=== PATIENT | female | born 1940 | race Caucasian/White ===

== ENCOUNTER 2016-03-23 14:46 | Emergency (ER) | payer MEDICARE, OTHER ==
[~2016-03-23] VITALS: Ht 157.5 cm; Wt 66.7 kg
[2016-03-23] MEDS ORDERED: TRAM50TA2 (16:04)
[2016-03-23] MEDS ORDERED: ATOR20TA66 (16:04)
[2016-03-23] MEDS ORDERED: CLOP75TA28 (16:04)
[2016-03-23] MEDS ORDERED: CARV25TA (16:04)
[2016-03-23] MEDS ORDERED: ANAS1TAB7 (16:04)
[2016-03-23] MEDS ORDERED: ONDA4TAB10 (16:04)
[2016-03-23] MEDS ORDERED: AMLO10TA2 (16:04)
[2016-03-23] MEDS ORDERED: CEFDINIR 300 MG (OMNICEF) CAP PO ONE (16:30)
[2016-03-23] MEDS ORDERED: CEFD300C3 PO (16:30)
--- NOTE | 2016-03-23 16:30 | ED Integumentary General ---
General Chief Complaint: Skin/Wound Problems Stated Complaint: POST OP L SIDE CHEST LUMPS/POSS FLUID/CHILLS Nursing Triage Note: PT HAS RECENT R MASTECTOMY AND HAS CONCERNS OF WOUND Source: patient Exam Limitations: no limitations History of Present Illness Time seen by provider: 16:26 Initial Comments To ER with concerns of infection to the wound on her left breast. She had a mastectomy at [facility] in [place] 10 days ago for breast cancer. She reports that there was a large blister initially. The blister has collapsed and now there is loose skin. Minimal drainage from the 2 PABLO drains. No fevers. She is scheduled to follow-up with her surgeon on 03/26/16. Timing/Duration: yesterday, getting worse Severity: moderate Associated Symptoms: denies symptoms Allergies and Home Medications Allergies Coded Allergies: No Known Drug Allergies (Unverified , 03/23/16) Home Medications Amlodipine Besylate 10 Mg Tablet #30 (Reported) Anastrozole 1 Mg Tablet #30 (Reported) Atorvastatin Calcium 20 Mg Tablet #30 (Reported) Carvedilol 25 Mg Tablet #60 (Reported) Clopidogrel Bisulfate 75 Mg Tablet #30 (Reported) Ondansetron HCl 4 Mg Tablet #20 (Reported) Tramadol HCl 50 Mg Tablet #40 (Reported) Constitutional: see HPI EENTM: see HPI Respiratory: no symptoms reported Cardiovascular: no symptoms reported Genitourinary: no symptoms reported Musculoskeletal: no symptoms reported Skin: see HPI Psychiatric/Neurological: No Symptoms Reported Past Iibprvn-Qerbua-Osegnr Hx Patient Social History Alcohol Use: Denies Use Recreational Drug Use: No Smoking Status: Never a Smoker Recent Foreign Travel: No Contact w/Someone Who Travel: No Recent Infectious Disease Expo: No Recent Hopitalizations: Yes (R SIDED MASTECTOMY) Physical Abuse Screen: No Sexual Abuse: No Seasonal Allergies Seasonal Allergies: No Surgeries HX Surgeries: Yes Surgeries: Breast Respiratory Hx Respiratory Disorders: Yes Respiratory Disorders: COPD Cardiovascular Hx Cardiac Disorders: Yes Cardiac Disorders: Hypertension Neurological Hx Neurological Disorders: No Genitourinary Hx Genitourinary Disorders: No Gastrointestinal Hx Gastrointestinal Disorders: No Musculoskeletal Hx Musculoskeletal Disorders: Yes Musculoskeletal Disorders: Arthritis Endocrine Hx Endocrine Disorders: No HEENT HX ENT Disorders: No Cancer Hx Cancer: Yes Cancer: Breast Psychosocial Hx Psychiatric Problems: No Integumentary HX Skin/Integumentary Disorder: No Blood Transfusions Hx Blood Disorders: No Adverse Reaction to a Blood Tr: No Physical Exam Vital Signs Vital Sign - Last 12Hours 03/23/16 15:45 Temp 96.2 Pulse 58 Resp 18 B/P 118/52 Pulse Ox 96 Capillary Refill : Less Than 3 Seconds General Appearance: WD/WN no apparent distress HEENT: PERRL/EOMI normal ENT inspection Neck: non-tender full range of motion Respiratory: no respiratory distress no accessory muscle use Neurologic/Psychiatric: alert normal mood/affect oriented x 3 Skin: normal color warm/dry other (there is a but appears to be a large hemorrhagic bulla that has collapsed to the tissues overlying the former left breast. Thin membrane of skin at was the outer surface of the bulla is easily removed with difficulty or pain. There remains a small area of necrotic tissue in the center of this wound. There is minimal erythema surrounding it. Covered with dry nonadherent dressing after superficial debridement) Progress/Results/Core Measures Results/Orders My Orders Orders-CESAR CAMPOS APRN Cbc With Automated Diff (03/23/16 16:06) Tramadol Tablet (Ultram Tablet) (03/23/16 16:15) Tramadol Tablet (Ultram Tablet) (03/23/16 16:01) Wound Culture (03/23/16 16:25) Cefdinir Capsule (Omnicef Capsule) (03/23/16 16:30) Medications Given in ED Current Medications Medications Dose Ordered Sig/Thalia Route Start Time Stop Time Status Last Admin Dose Admin Tramadol HCl 50 mg STK-MED ONCE .ROUTE 03/23/16 16:01 03/23/16 16:08 DC 03/23/16 16:23 100 MG Vital Signs/I&O Vital Sign - Last 12Hours 03/23/16 15:45 Temp 96.2 Pulse 58 Resp 18 B/P 118/52 Pulse Ox 96 Blood Pressure Mean: 74 Departure Impression Impression: Primary Impression: Postoperative wound breakdown Qualified Code: T81.31XA - Disruption of external operation (surgical) wound, not elsewhere classified, initial encounter Disposition: HOME, SELF-CARE Condition: Stable Departure-Patient Inst. Decision time for Depature: 16:29 Referrals: NO,LOCAL PHYSICIAN (PCP/Family) Primary Care Physician Patient Instructions: Wound Care (DC) Add. Discharge Instructions: 1. Follow-up with your surgeon on Thursday as scheduled 2. Antibiotics as directed 3. Return to ER for any fevers All discharge instructions reviewed with patient and/or family. Voiced understanding. Scripts Cefdinir 300 Mg [id number] Mg PO BID #14 CAP Prov:CESAR CAMPOS APRN 03/23/16 CESAR CAMPOS APRN Mar 23, 2016 16:30
[2016-03-23 16:47] LABS: BASOPHILS % (AUTO) 0 % (0-10); EOSINOPHILS # (AUTO) 1.1 10^3/uL (0.0-0.3); EOSINOPHILS % (AUTO) 11 % (0-10); LYMPHOCYTES # (AUTO) 1.6 X 10^3 (1.0-4.0); LYMPHOCYTES % (AUTO) 16 % (12-44); MEAN CORPUSCULAR HEMOGLOBIN 31 PG (25-34); MEAN CORPUSCULAR HGB CONC 33 G/DL (32-36); MEAN CORPUSCULAR VOLUME 95 FL (80-99); MONOCYTES % (AUTO) 10 % (0-12); NEUTROPHILS # (AUTO) 6.2 X 10^3 (1.8-7.8); NEUTROPHILS % (AUTO) 63 % (42-75); PLATELET COUNT 273 10^3/uL (130-400); RED BLOOD COUNT 3.43 10^6/uL (4.35-5.85); RED CELL DISTRIBUTION WIDTH 13.8 % (10.0-14.5); WHITE BLOOD COUNT 9.9 10^3/uL (4.3-11.0)
[2016-03-23 17:20] VITALS: BP 118/52
== END 2016-03-23 17:20 | disposition home or self-care (01) ==
LOC: EDUNIT# 14:46 → ER 14:50
DX: T81.31XA Disruption of external operation (surgical) wound, not elsewhere classified, initial encounter (principal); C50.911 Malignant neoplasm of unspecified site of right female breast; J44.9 Chronic obstructive pulmonary disease, unspecified; I10 Essential (primary) hypertension; Z79.02 Long term (current) use of antithrombotics/antiplatelets; Z79.899 Other long term (current) drug therapy; Z90.11 Acquired absence of right breast and nipple
CPT/HCPCS: 36415; 85025; 87070; 87077; 87186; 87205; 99283

== ENCOUNTER 2016-03-24 23:45 | Emergency (ER) | payer MEDICARE ==
[~2016-03-24] VITALS: Ht 157.5 cm; Wt 64.9 kg
[~2016-03-24 23:45] MED LIST: AMLO10TA2; ANAS1TAB7; ATOR20TA66; CARV25TA; CEFD300C3 PO; CLOP75TA28; ONDA4TAB10; TRAM50TA2
--- OUTSIDE RECORDS SUMMARY | 2016-03-24 23:52 | XMS REPORT | Continuity of Care Document ---
Author Author [facility] Organization [facility] Address Unknown Phone Unavailable Care Team Providers Care Cemetery Workers Supervisor Name Role Phone NO, LOCAL PHYSICIAN PCP Unavailable Insurance Providers Payer Name Policy Number Subscriber Name Relationship Unknown Glen Gatica 18 Self / Same As Patient Advance Directives Directive Response Recorded Date/Time Advance Directives No 03/23/16 3:45pm Organ Donor Yes 03/23/16 3:45pm Resuscitation Status Full Code 03/23/16 3:45pm Chief Complaint and Reason for Visit Chief Complaint Skin/Wound Problems Reason for Visit [id number] Problems Active Problems Medical Problem Onset Date Status Postoperative wound breakdown Unknown Acute Medications Current Home Medications Medication Dose Units Route Directions Days/Qty Instructions Start Date Ondansetron Hcl 4 Mg 20 03/23/16 Tramadol Hcl 50 Mg 40 03/23/16 Amlodipine Besylate 10 Mg 30 03/23/16 Carvedilol 25 Mg 60 03/23/16 Anastrozole 1 Mg 30 03/23/16 Atorvastatin Calcium 20 Mg 30 03/23/16 Clopidogrel Bisulfate 75 Mg 30 03/23/16 Cefdinir (Omnicef) 300 Mg 300 Mg Oral Twice A Day 14 03/23/16 Social History Social History Problem Response Recorded Date/Time Alcohol Use Denies Use 03/23/2016 3:45pm Recreational Drug Use No 03/23/2016 3:45pm Recent Foreign Travel No 03/23/2016 3:45pm Recent Infectious Disease Exposure No 03/23/2016 3:45pm Hospitalization with Isolation Denies 03/23/2016 3:45pm Smoking Status Never a Smoker 03/23/2016 3:45pm Recent Hopitalizations Y R SIDED MASTECTOMY 03/23/2016 3:45pm Hospitalization with Isolation Denies 03/23/2016 3:45pm Query Response Start Date Stop Date Smoking Status Never a Smoker Hospital Discharge Instructions No hospital discharge instructions. Plan of Care Discharge Date 03/23/16 5:20pm Disposition 01 HOME, SELF-CARE Condition at Discharge Stable Instructions/Education Provided Wound Care (DC) Prescriptions See Medication Section Referrals NO,LOCAL PHYSICIAN - Primary Care Physician Additional Instructions/Education 1. Follow-up with your surgeon on Thursday as scheduled 2. Antibiotics as directed 3. Return to ER for any fevers All discharge instructions reviewed with patient and/or family. Voiced understanding. Functional Status No functional status results. Allergies, Adverse Reactions, Alerts No known allergies. Immunizations No immunization records. Vital Signs Acute Vital Signs Vital Response Date/Time Temperature (Fahrenheit) 96.2 degrees F (97.6 - 99.5) 03/23/2016 3:45pm Temperature (Calculated Celsius) 35.74268 degrees C (36.4 - 37.5) 03/23/2016 3:45pm Pulse Rate (adult) 58 bpm (60 - 90) 03/23/2016 3:45pm Respiratory Rate 18 bpm (12 - 24) 03/23/2016 3:45pm O2 Sat by Pulse Oximetry 96 % (88 - 100) 03/23/2016 3:45pm Blood Pressure 118/52 mm Hg 03/23/2016 3:45pm Blood Pressure Mean 74 mm Hg 03/23/2016 3:45pm Pain Numeric Pain Scale 9 03/23/2016 4:23pm Height (Feet) 5 feet 03/23/2016 3:45pm Height (Inches) 2 inches 03/23/2016 3:45pm Height (Calculated Centimeters) 157.141553 cm 03/23/2016 3:45pm Weight (Pounds) 147 pounds 03/23/2016 3:45pm Weight (Calculated Kilograms) 66.256857 kilograms 03/23/2016 3:45pm Capillary Refill Capillary Refill Less Than 3 Seconds 03/23/2016 3:45pm Height 5 ft 2 in Weight 147 lb Body Mass Index 26.9 kg/m^2 Results Laboratory Results Test Name Result Units Flags Reference Collection Date/Time Result Date/ Time Comments White Blood Count 9.9 10^3/uL 4.3-11.0 03/23/2016 4:03/23/2016 4: 47pm Red Blood Count 3.43 10^6/uL L 4.35-5.85 03/23/2016 4:03/23/2016 4: 47pm Hemoglobin 10.6 G/DL L 11.5-16.0 03/23/2016 4:03/23/2016 4:47pm Hematocrit 33 % L 35-52 03/23/2016 4:03/23/2016 4:47pm Mean Corpuscular Volume 95 FL 80-99 03/23/2016 4:03/23/2016 4: 47pm Mean Corpuscular Hemoglobin 31 PG 25-34 03/23/2016 4:03/23/2016 4: 47pm Mean Corpuscular Hemoglobin Concent 33 G/DL 32-36 03/23/2016 4: 4:47pm Red Cell Distribution Width 13.8 % 10.0-14.5 03/23/2016 4:2016 4:47pm Platelet Count 273 10^3/uL 130-400 03/23/2016 4:03/23/2016 4:47pm Mean Platelet Volume 10.0 FL 7.4-10.4 03/23/2016 4:03/23/2016 4: 47pm Neutrophils (%) (Auto) 63 % 42-75 03/23/2016 4:03/23/2016 4:47pm Lymphocytes (%) (Auto) 16 % 12-44 03/23/2016 4:03/23/2016 4:47pm Monocytes (%) (Auto) 10 % 0-12 03/23/2016 4:03/23/2016 4:47pm Eosinophils (%) (Auto) 11 % H 0-10 03/23/2016 4:31p03/23/2016 4:47pm Basophils (%) (Auto) 0 % 0-10 03/23/2016 4:31p03/23/2016 4:47pm Neutrophils # (Auto) 6.2 X 10^3 1.8-7.8 03/23/2016 4:31pm 03/23/2016 4: 47pm Lymphocytes # (Auto) 1.6 X 10^3 1.0-4.0 03/23/2016 4:31pm 03/23/2016 4: 47pm Monocytes # (Auto) 1.0 X 10^3 0.0-1.0 03/23/2016 4:31pm 03/23/2016 4: 47pm Eosinophils # (Auto) 1.1 10^3/uL H 0.0-0.3 03/23/2016 4:31pm 03/23/2016 4 :47pm Basophils # (Auto) 0.0 10^3/uL 0.0-0.1 03/23/2016 4:31pm 03/23/2016 4: 47pm Procedures No known history of procedures. Encounters Encounter Location Arrival/Admit Date Discharge/Depart Date Attending Provider Departed Emergency Room [facility] 03/23/16 2:50pm 03/23 5:20pm CESAR CAMPOS APRN Recent Diagnosis
[2016-03-25] MEDS ORDERED: ASPIRIN 81 MG CHEW (CHILDREN'S ASA) PO ONE
[2016-03-25] MEDS ORDERED: RX-NITROGLYCERIN 0.4 MG TAB BTL 25'S SL PRN
[2016-03-25 00:08] LABS: BASOPHILS # (AUTO) 0.1 10^3/uL (0.0-0.1); BASOPHILS % (AUTO) 0 % (0-10); EOSINOPHILS # (AUTO) 1.2 10^3/uL (0.0-0.3); EOSINOPHILS % (AUTO) 9 % (0-10); LYMPHOCYTES # (AUTO) 1.5 X 10^3 (1.0-4.0); LYMPHOCYTES % (AUTO) 10 % (12-44); MEAN CORPUSCULAR HEMOGLOBIN 31 PG (25-34); MEAN CORPUSCULAR HGB CONC 33 G/DL (32-36); MEAN CORPUSCULAR VOLUME 95 FL (80-99); MEAN PLATELET VOLUME 10.2 FL (7.4-10.4); MONOCYTES # (AUTO) 1.4 X 10^3 (0.0-1.0); MONOCYTES % (AUTO) 10 % (0-12); NEUTROPHILS # (AUTO) 9.8 X 10^3 (1.8-7.8); NEUTROPHILS % (AUTO) 71 % (42-75); PLATELET COUNT 283 10^3/uL (130-400); RED BLOOD COUNT 3.45 10^6/uL (4.35-5.85); RED CELL DISTRIBUTION WIDTH 13.6 % (10.0-14.5); WHITE BLOOD COUNT 13.9 10^3/uL (4.3-11.0)
[2016-03-25] MEDS ORDERED: CEFD300C3 PO (00:09)
[2016-03-25 00:13] LABS: INR 1.2 (0.8-1.4); PROTHROMBIN TIME PATIENT 14.4 SEC (12.2-14.7)
[2016-03-25 00:15] VITALS: BP 104/45
--- NOTE | 2016-03-25 00:16 | ED General ---
General Chief Complaint: Altered Mental Status Stated Complaint: CHEST PAIN Nursing Triage Note: INTERMITTANT CHEST PAIN, ALTERED MENTAL STATUS Nursing Sepsis Screen: No Definite Risk Source of Information: Patient (IS A VERY POOR/LIMITED HISTORIAN), Family ( DAUGHTER GIVES ALL INFORMATION) History of Present Illness Time Seen by Provider: 23:55 Initial Comments PT ARRIVES VIA POV FROM HOME PT HAD A LEFT MASTECTOMY [address] AVILES AT [facility]. PT CURRENTLY HAS [address] WHICH CONTINUE TO DRAIN SEROSUNGUINOUS FLUID PT WAS SEEN IN ER LAST PM FOR A "BLISTER" TO WOUND--WAS FOUND TO HAVE A LARGE HEMORRHAGIC BULLA TO INCISION. PT WAS PLACED ON BACTRIM PT IS TO HAVE ADDITIONAL SURGERY ON Thursday03/26/16 TO REMOVE ADDITIONAL MUSCLE, PATHOLOGY REPORTS SHOWED CANCER IN THE MUSCLE WELL, PER DAUGHTER PT HAS NOT HAD ANY CHEMO OR RADIATION PT DENIES FEVER DAUGHTER REPORTS THAT PT WAS ACTING NORMAL THIS AM ON WAKING, BUT HAS GRADUALLY BECAME SOMEWHAT CONFUSED, "SPACEY", "NOT ACTING RIGHT-ACTING SILLY" THROUGHOUT THE DAY AND THIS EVENING--NOT NORMAL FOR PT DAUGHTER STATES THE PT SLEPT FOR MOST OF THE DAY, WHICH IS NOT NORMAL FOR PT MUCH LATER, DAUGHTER REPORTS THAT PT HAS HAD THESE "SPELLS" MULTIPLE TIMES TONIGHT PT C/O LEFT CHEST PAIN AND DAUGHTER BROUGHT HER IN --NO IDEA WHEN PAIN STARTED, BUT STATES SHE DOES NOT HAVE ANY PAIN NOW PT HAS CHRONIC SHORTNESS OF BREATH FROM COPD, AND WEARS O2 CONTINUOUSLY, AND SHORTNESS OF BREATH IS NO DIFFERENT THAN NORMAL NO SWELLING IN LEGS/ FEET OR PAIN IN CALVES NO COUGH PT DOES HAVE A CARDIAC HISTORY AND HAS HAD MULTIPLE CO'S SHE HAS HAD 17 STENTS, PLUS UNKNOWN # OF ANGIOPLASTIES. LAST CO WAS 3 MONTHS AGO AND HAD 2 STENTS AND 3 ANGIOPLASTIES AT THAT TIME PT HAS BEEN OFF HER PLAVIX FOR MOST OF THE LAST 2 WEEKS, DUE TO RECENT SURGERY. PT HAS CONTINUED TO TAKE ASPIRIN PT HAD A DOSE OF PAIN MEDICATION THIS AM AND AGAIN AT 2029--PT STATES SHE IS NOT HAVING ANY PAIN AT THIS TIME PT ALSO TOOK ANTIBIOTIC X 2 TODAY PCP: DR. EAGLE GARVIN, [facility] PERE[facility] CARDIOLOGY: DR. INIGUEZ AND DR. TEJADA LANG SURGEON: DR. AVILES, [facility] Allergies and Home Medications Allergies Coded Allergies: No Known Drug Allergies (Unverified , 03/23/16) Home Medications Amlodipine Besylate 10 Mg Tablet #30 (Reported) Anastrozole 1 Mg Tablet #30 (Reported) Atorvastatin Calcium 20 Mg Tablet #30 (Reported) Carvedilol 25 Mg Tablet #60 (Reported) Cefdinir 300 Mg Capsule #14 300 MG PO BID Prescribed by: CESAR CAMPOS on 03/23/16 1630 Cefdinir 300 Mg Capsule 300 MG PO BID (Reported) Clopidogrel Bisulfate 75 Mg Tablet #30 (Reported) Ondansetron HCl 4 Mg Tablet #20 (Reported) Tramadol HCl 50 Mg Tablet #40 (Reported) Constitutional: No chills, No diaphoresis, No dizziness, No fever EENTM: no symptoms reported Respiratory: see HPI short of breath (CHRONIC/STABLE) Cardiovascular: see HPI chest pain (OVER AREA OF SURGERY) Gastrointestinal: no symptoms reportedNo nausea, No vomiting Genitourinary: no symptoms reported Musculoskeletal: see HPI Skin: see HPI Psychiatric/Neurological: See HPIDenies Headache, Denies Numbness, Denies Paresthesia, Denies Seizure, Denies Tingling, Denies Tremors Hematologic/Lymphatic: Other (LYMPH NODES REMOVED FROM LEFT AXILLA) Past Ihlogvl-Olwmpv-Ymkvbv Hx Patient Social History Alcohol Use: Occasionally Uses Recreational Drug Use: No Smoking Status: Former Smoker (QUIT IN 1999) Recent Foreign Travel: No Contact w/Someone Who Travel: No Recent Infectious Disease Expo: No Recent Hopitalizations: Yes (L SIDED MASTECTOMY 03/13/16) Physical Abuse Screen: No Sexual Abuse: No Immunizations Up To Date Tetanus Booster (TDap): Less than 5yrs Seasonal Allergies Seasonal Allergies: No Surgeries HX Surgeries: Yes (CARDIAC CATHS--STENTS X 17, PLUS MULTIPLE ANGIOPLASTIES; LEFT MASTECTOMY 03/13/2016-[facility]) Surgeries: Breast, Cardiac, Coronary Stent Respiratory Hx Respiratory Disorders: Yes Respiratory Disorders: COPD Cardiovascular Hx Cardiac Disorders: Yes (MULTIPLE CO'S , STENTS X 17, MULTIPLE ANGIOPLASTIES) Cardiac Disorders: Coronary Artery Disease, Heart Attack, High Cholesterol, Hypertension Neurological Hx Neurological Disorders: No Reproductive System : No Hx Reproductive Disorders: No Genitourinary Hx Genitourinary Disorders: No Gastrointestinal Hx Gastrointestinal Disorders: No Musculoskeletal Hx Musculoskeletal Disorders: Yes Musculoskeletal Disorders: Arthritis Endocrine Hx Endocrine Disorders: No HEENT HX ENT Disorders: No Cancer Hx Cancer: Yes Cancer: Breast Psychosocial Hx Psychiatric Problems: No Integumentary HX Skin/Integumentary Disorder: No Blood Transfusions Hx Blood Disorders: No Adverse Reaction to a Blood Tr: No Physical Exam Vital Signs Vital Sign - Last 12Hours 03/24/16 03/25/16 23:53 00:15 Temp 99.7 Pulse 65 Resp 19 B/P 104/52 Pulse Ox 90 O2 Delivery Room Air O2 Flow Rate 2 Capillary Refill : Less Than 3 Seconds General Appearance: No Apparent Distress WD/WN HEENT: PERRL/EOMI Neck: Full Range of Motion Normal Inspection Non Tender Supple Respiratory: Normal Breath Sounds No Accessory Muscle Use No Respiratory Distress Other (LEFT CHEST WALL--ENTIRE WOUND AND SURROUNDING TISSUE NECROTIC WITH SURROUNDING ERYTHEMA AND INDURATION, VERY TENDER TO PALPATION. NO DRAINAGE FROM THIS AREA, BUT 2 DRAINS EACH HAVE LESS THAN 25 ML OF SEROSANGUINOUS FLUID ) Cardiovascular: Regular Rate, Rhythm No Edema No JVD No Murmur Normal Peripheral Pulses Gastrointestinal: Normal Bowel Sounds No Organomegaly No Pulsatile Mass Non Tender Soft Back: No CVA Tenderness Extremity: Normal Capillary Refill Non Tender No Calf Tenderness No Pedal Edema Neurologic/Psychiatric: Alert No Motor/Sensory Deficits ldr rn II-XII Norm as Tested Other (ORIENTED TO PERSON, PLACE, SOMEWHAT CONFUSED TO TIME, SITUATION. ) Skin: Normal Color Warm/Dry Other ( ABOVE) Progress/Results/Core Measures Results/Orders Lab Results Laboratory Tests Test 03/24/16 23:57 03/25/16 01:51 03/25/16 02:05 Range/Units Activated Partial Thromboplast Time 33 24-35 SEC Alanine Aminotransferase (ALT/SGPT) 17 0-55 U/L Albumin 3.3 3.2-4.5 G/DL Alkaline Phosphatase 116 40-136 U/L Amylase Level 136 H 25-125 U/L Anion Gap 11 5-14 MMOL/L Aspartate Amino Transf (AST/SGOT) 12 5-34 U/L B-Type Natriuretic Peptide 292.5 H <100.0 PG/ML BUN/Creatinine Ratio 16 Basophils # (Auto) 0.1 0.0-0.1 10^3/uL Basophils (%) (Auto) 0 0-10 % Blood Urea Nitrogen 13 7-18 MG/DL Calcium Level 9.4 8.5-10.1 MG/DL Carbon Dioxide Level 22 21-32 MMOL/L Chloride Level 104 98-107 MMOL/L Creatine Kinase MB 0.7 <6.6 NG/ML Creatinine 0.80 0.60-1.30 MG/DL Eosinophils # (Auto) 1.2 H 0.0-0.3 10^3/uL Eosinophils (%) (Auto) 9 0-10 % Estimat Glomerular Filtration Rate > 60 Glucose Level 88 70-105 MG/DL Hematocrit 33 L 35-52 % Hemoglobin 10.7 L 11.5-16.0 G/DL INR Comment 1.2 0.8-1.4 Lipase 65 8-78 U/L Lymphocytes # (Auto) 1.5 1.0-4.0 X 10^3 Lymphocytes (%) (Auto) 10 L 12-44 % Magnesium Level 1.9 1.8-2.4 MG/DL Mean Corpuscular Hemoglobin 31 25-34 PG Mean Corpuscular Hemoglobin Concent 33 32-36 G/DL Mean Corpuscular Volume 95 80-99 FL Mean Platelet Volume 10.2 7.4-10.4 FL Monocytes # (Auto) 1.4 H 0.0-1.0 X 10^3 Monocytes (%) (Auto) 10 0-12 % Neutrophils # (Auto) 9.8 H 1.8-7.8 X 10^3 Neutrophils (%) (Auto) 71 42-75 % Platelet Count 283 130-400 10^3/uL Potassium Level 4.4 3.6-5.0 MMOL/L Prothrombin Time 14.4 12.2-14.7 SEC Red Blood Count 3.45 L 4.35-5.85 10^6/uL Red Cell Distribution Width 13.6 10.0-14.5 % Sodium Level 137 135-145 MMOL/L Total Bilirubin 0.5 0.1-1.0 MG/DL Total Creatine Kinase 65 29-168 U/L Total Protein 6.2 L 6.4-8.2 G/DL Troponin I < 0.30 <0.30 NG/ML White Blood Count 13.9 H 4.3-11.0 10^3/uL Urine Bacteria NEGATIVE /HPF Urine Bilirubin NEGATIVE NEGATIVE Urine Casts NONE /LPF Urine Clarity CLEAR Urine Color YELLOW Urine Crystals NONE /LPF Urine Culture Indicated NO Urine Glucose (UA) NEGATIVE NEGATIVE Urine Ketones NEGATIVE NEGATIVE Urine Leukocyte Esterase NEGATIVE NEGATIVE Urine Mucus NEGATIVE /LPF Urine Nitrite NEGATIVE NEGATIVE Urine Protein 2+ H NEGATIVE Urine RBC NONE /HPF Urine RBC (Auto) NEGATIVE NEGATIVE Urine Specific [place] 1.005 L 1.016-1.022 Urine Squamous Epithelial Cells 0-2 /HPF Urine Urobilinogen NORMAL NORMAL MG/DL Urine WBC NONE /HPF Urine pH 7 5-9 My Orders Orders-TERRYADRYAN Brooke MADSEN Amylase (03/24/16 23:57) Cbc With Automated Diff (03/24/16 23:57) Comprehensive Metabolic Panel (03/24/16 23:57) Creatine Kinase (03/24/16 23:57) Creatine Kinase Mb (03/24/16 23:57) Lipase (03/24/16 23:57) Partial Thromboplastin Time (03/24/16 23:57) Protime With Inr (03/24/16 23:57) Troponin I (03/24/16 23:57) Ekg Tracing (03/24/16 23:57) Aspirin Chewable Tablet (Baby Aspirin Ch (03/25/16 00:00) Rx-Nitroglycerin Sl Tabs (Rx-Nitrostat S (03/25/16 00:00) BNP (03/24/16 23:57) Monitor-Rhythm Ecg Trace Only (03/24/16 23:57) Magnesium (03/24/16 23:57) Chest 1 View, Ap/Pa Only (03/25/16 00:05) Saline Lock/Iv-Start (03/25/16 00:05) Ct Head Wo (03/25/16 00:16) Ct Angio Chest W (03/25/16 00:30) Methylprednisolone Sod Succ (Solu-Medrol (03/25/16 01:00) Diphenhydramine Injection (Benadryl Inje (03/25/16 01:00) Ua Culture If Indicated (03/25/16 01:34) Lactic Acid Analyzer (03/25/16 01:34) Blood Culture (03/25/16 01:34) Piperacillin Sodium/Tazobactam (Zosyn Vi (03/25/16 02:00) Vancomycin Iv Add-[place] (Vancomycin Iv (03/25/16 02:00) Medications Given in ED Current Medications Medications Dose Ordered Sig/Thalia Route Start Time Stop Time Status Last Admin Dose Admin Aspirin 324 mg ONCE ONCE PO 03/25/16 00:00 03/25/16 00:01 DC 03/25/16 00:03 324 MG Diphenhydramine HCl 50 mg 50 mg ONCE ONCE IVP 03/25/16 01:00 03/25/16 01:02 DC 03/25/16 00:49 50 MG Methylprednisolone Sodium Succinate 125 mg ONCE ONCE IVP 03/25/16 01:00 03/25/16 01:02 DC 03/25/16 00:49 125 MG Piperacillin Sod/ Tazobactam Sod 4.5 gm/Sodium Chloride 100 ml @ 200 mls/hr ONCE ONCE IV 03/25/16 02:00 03/25/16 02:29 DC 03/25/16 02:04 200 MLS/HR Vancomycin HCl/ Sodium Chloride 250 ml @ 250 mls/hr ONCE ONCE IV 03/25/16 02:00 03/25/16 02:59 03/25/16 02:04 250 MLS/HR Vital Signs/I&O Vital Sign - Last 12Hours 03/24/16 03/24/16 03/25/16 03/25/16 23:53 23:53 00:15 01:15 Temp 99.7 Pulse 65 57 60 Resp 19 13 14 B/P 104/52 104/45 115/40 Pulse Ox 90 98 94 O2 Delivery Room Air Room Air Nasal Cannula Room Air O2 Flow Rate 2 03/25/16 03/25/16 02:25 02:28 Temp 99.1 99.1 Pulse 70 70 Resp 16 16 B/P 118/54 Pulse Ox 95 95 O2 Delivery Nasal Cannula Room Air O2 Flow Rate 2 2 Blood Pressure Mean: 69 Progress Note : Progress Note PT REPORTS TO CT STAFF THAT SHE IS ALLERGIC TO IV CONTRAST AND THEY PRE- MEDICATE HER BEFORE IV DYE IS GIVEN. DAUGHTER REPORTS THAT SHE DOES NOT THINK SHE IS ALLERGIC, BUT WILL PREMEDICATE PT A PRECAUTION. PT HAD NO COMPLAINTS DURING ER STAY AND RESTED QUIETLY FOR NEARLY ALL OF STAY Diagnostic Imaging Comments CXR--NO ACUTE PROCESS, PENDING RADIOLOGIST REVIEW CT HEAD--NO ACUTE PROCESS, PER STAT RAD VIA FAX @ 0104 CT CHEST ANGIOGRAM--NO ACUTE PROCESS, PER STAT RAD VIA FAX @ 0123 Reviewed: Reviewed by Me Departure Communication Progress Notes 0130--CALLED [facility]. 0144--SPOKE WITH DR. AVILES, ACCEPTS PT FOR ADMIT. PT WILL HAVE TO GO TO ER FIRST. HE ADVISES VANCOMYCIN AND ZOSYN 0153--SPOKE WITH DR. ORLANDO, ER PHYSICIAN. ACCEPTS PT FOR TRANSFER. Impression Impression: Primary Impression: Altered mental status Additional Impressions: Left sided chest pain POST OP WOUND NECROSIS AND WOUND DEHISCENCE POST OP WOUND INFECTION S/P LEFT MASTECTOMY FOR BREAST CANCER Hx of coronary artery disease Disposition: XFER SHT-TRM HOSP Condition: Stable Departure-Patient Inst. Referrals: NO,LOCAL PHYSICIAN (PCP/Family) Primary Care Physician ADRYAN STEWART DO Mar 25, 2016 00:16
[2016-03-25 00:26] LABS: ALANINE AMINOTRANSFERASE 17 U/L (0-55); ALBUMIN 3.3 G/DL (3.2-4.5); AMYLASE 136 U/L (25-125); ANION GAP 11 MMOL/L (5-14); ASPARTATE AMINO TRANSFERASE 12 U/L (5-34); BILIRUBIN,TOTAL 0.5 MG/DL (0.1-1.0); BLOOD UREA NITROGEN 13 MG/DL (7-18); BUN/CREATININE RATIO 16; CALCIUM 9.4 MG/DL (8.5-10.1); CARBON DIOXIDE 22 MMOL/L (21-32); CHLORIDE 104 MMOL/L (98-107); CREATINE KINASE 65 U/L (29-168); GFR ESTIMATED > 60; GLUCOSE 88 MG/DL (70-105); LIPASE 65 U/L (8-78); MAGNESIUM 1.9 MG/DL (1.8-2.4); POTASSIUM 4.4 MMOL/L (3.6-5.0); SODIUM 137 MMOL/L (135-145); TOTAL PROTEIN 6.2 G/DL (6.4-8.2)
[2016-03-25 00:33] LABS: TROPONIN I < 0.30 NG/ML (<0.30)
[2016-03-25] MEDS ORDERED: methylPREDNISolone 125 MG (Solu-MEDROL) VIAL IVP ONE (01:00)
[2016-03-25] MEDS ORDERED: diphenhydrAMINE 50 MG/ML INJ (BENADRYL) IVP ONE (01:00)
[2016-03-25 01:15] VITALS: BP 115/40
[2016-03-25] MEDS ORDERED: PIPERACILLIN SODIUM/TAZOBACTAM 4.5 GM in NORMAL SALINE (BAXTER MINI) 100 ML IV ONE (02:00)
[2016-03-25] MEDS ORDERED: VANCOMYCIN IV ADD-VANTAGE 1,000 MG in SODIUM CHLORIDE (ADD-VANTAGE) 250 ML IV ONE (02:00)
[2016-03-25 02:09] LABS: BILIRUBIN,URINE NEGATIVE (NEGATIVE); KETONES,URINE NEGATIVE (NEGATIVE); LEUKOCYTE ESTERASE ,URINE NEGATIVE (NEGATIVE); NITRITE,URINE NEGATIVE (NEGATIVE); PH,URINE 7 (5-9); PROTEIN,URINE 2+ (NEGATIVE); UROBILINOGEN,URINE NORMAL (NORMAL)
[2016-03-25 02:23] LABS: SQUAMOUS EPITHELIAL CELL,UR 0-2 /HPF
[2016-03-25 02:25] VITALS: BP 118/54
[2016-03-25 02:28] VITALS: BP 118/54
--- NOTE | 2016-03-25 08:20 | Diagnostic Imaging Report ---
PROCEDURE: CT head without contrast. TECHNIQUE: Multiple contiguous axial images were obtained through the brain without the use of intravenous contrast. INDICATION: Altered mental status. FINDINGS: There is no intracranial hemorrhage, edema, or mass effect. There is periventricular and deep white matter hypodensities compatible with chronic microvascular ischemic changes. No hydrocephalus. No extra-axial fluid collection is seen. The calvarium, the paranasal sinuses and orbits visualized portions appear grossly unremarkable. IMPRESSION: Chronic white matter ischemic changes. No intracranial hemorrhage. Dictated by: Dictated on workstation # [id number]
--- NOTE | 2016-03-25 08:25 | Diagnostic Imaging Report ---
INDICATION: Chest pain and shortness of breath. CTA chest obtained with IV contrast bolus and axial slices and MIP reconstructions. There are atherosclerotic changes of the thoracic aorta without evidence of aneurysm or dissection. The pulmonary parenchymal vessels show no filling defects to suggest embolic disease. There are no enlarged mediastinal or hilar nodes. There are no enlarged axillary nodes. There is a surgical drain in the left breast. There are diffuse emphysematous changes. There is a mass in the left upper lobe centrally adjacent to the thoracic aorta. The lesion measures approximately 1.4 cm. Neoplasm is not excluded. There is some bibasilar scarring and/or atelectasis. Visualized portions of the upper abdomen demonstrated postcholecystectomy change with some dilatation of the common duct which may be postoperative in nature. There is mild bilateral adrenal hyperplasia. IMPRESSION: No CT evidence of pulmonary emboli or aortic dissection. Emphysematous changes and chronic scarring or atelectasis in both lung bases. There is a 1.4-cm mass in the left upper lobe medially, adjacent to the descending aorta. Neoplasm is not excluded. Consider correlation with PET imaging. There are postsurgical changes with a surgical drain in the left breast as well some ill-defined edema and/or fluid along the left chest wall. This ER discrepancy report was stat faxed to ER @ [facility] in [place], [place] @ 8:24 AM/josephine. Dictated by: Dictated on workstation # [id number]
--- NOTE | 2016-03-25 08:33 | Diagnostic Imaging Report ---
INDICATION: Chest pain. FINDINGS: There is cardiomegaly. Mediastinum is unremarkable. There is no pleural effusion, pneumothorax, or pneumonia. IMPRESSION: No acute cardiopulmonary abnormality. Dictated by: Dictated on workstation # [id number]
== END 2016-03-25 02:35 | disposition short-term general hospital (02) ==
LOC: EDUNIT# 23:45 → ER 23:48
DX: T81.4XXA Infection following a procedure, initial encounter (principal); C50.912 Malignant neoplasm of unspecified site of left female breast; Z90.12 Acquired absence of left breast and nipple; R07.89 Other chest pain; J44.9 Chronic obstructive pulmonary disease, unspecified; I10 Essential (primary) hypertension; I25.2 Old myocardial infarction; Z79.82 Long term (current) use of aspirin; Z79.899 Other long term (current) drug therapy; Z87.891 Personal history of nicotine dependence; Z95.5 Presence of coronary angioplasty implant and graft; Z99.81 Dependence on supplemental oxygen
CPT/HCPCS: 36415; 70450; 71010; 71275; 80053; 81000; 82150; 82550; 82553; 83605; 83690; 83735; 83880; 84484; 85025; 85610; 85730; 87040; 93005; 93041; 96365; 96367; 96375